=== PATIENT | female | born 1985 | race Caucasian/White ===

== ENCOUNTER 2021-04-30 23:14 | Emergency (ER) | payer OTHER ==
[~2021-04-30] VITALS: Ht 160 cm; Wt 54.0 kg
[2021-05-01 01:44] LABS: EOSINOPHILS % (AUTO) 1.7 % (1.0-6.0); HEMATOCRIT 42.5 % (36-46); HEMOGLOBIN 14.2 g/dL (12.0-16.0); LYMPHOCYTES % (AUTO) 35.6 % (22.0-44.0); MEAN CORPUSCULAR HEMOGLOBIN 29.5 pg (26.0-34.0); MEAN CORPUSCULAR HGB CONC 33.4 G/dL (31.0-37.0); MEAN CORPUSCULAR VOLUME 88 fL (80-100); MONOCYTES # (AUTO) 0.2 K/uL (0.1-1.0); MONOCYTES % (AUTO) 4.2 % (2.0-9.0); NEUTROPHILS # (AUTO) 3.3 K/uL (1.8-7.7); NEUTROPHILS % (AUTO) 57.5 % (40.0-70.0); PLATELET COUNT (AUTO) 164 K/uL (150-450)
[2021-05-01 02:03] LABS: ALBUMIN 2.2 g/dL (3.4-5.0); BILIRUBIN,TOTAL 0.2 mg/dL (0.1-1.0); CALCIUM, TOTAL 8.5 mg/dL (8.8-10.5); CREATININE 1.34 mg/dL (0.60-1.30); POTASSIUM 4.3 mmol/L (3.5-5.1); TOTAL PROTEIN, SERUM 6.2 g/dL (6.4-8.2)
[2021-05-01] MEDS ORDERED: INSULIN REGULAR, HUMAN 100 UNITS/ML IVP ONE (02:15)
[2021-05-01 05:11] LABS: GLUCOSE,POINT OF CARE 359 MG/DL (70-110)
[2021-05-01 05:40] VITALS: BP 141/99
== END 2021-05-01 06:07 | disposition home or self-care (01) ==
LOC: EMS 23:15
DX: F41.9 Anxiety disorder, unspecified (principal); E11.65 Type 2 diabetes mellitus with hyperglycemia; F15.90 Other stimulant use, unspecified, uncomplicated
CPT/HCPCS: 36415; 71045; 80053; 82962; 84484; 84702; 85025; 93005; 96374; 99285; J1815

== ENCOUNTER 2022-10-31 17:47 | Emergency (ER) | payer MEDICAID ==
[~2022-10-31] VITALS: Ht 154.9 cm; Wt 75.0 kg
[~2022-10-31 17:47] MED LIST: ACET-66 PO; AMLO5TAB66 PO; CETI10TA58 PO; INSU100I66 SQ; LISI20TA24 PO; MECL-134 PO; TRI115O TP
[2022-10-31 17:52] VITALS: TEMP 99.8
[2022-10-31] MEDS ORDERED: METOCLOPRAMIDE HCL 5 MG/ML 2 ML VIAL IVP ONE (18:45)
[2022-10-31] MEDS ORDERED: SODIUM CHLORIDE 0.9% 1,000 ML IV ONE (18:45)
[2022-10-31 19:10] LABS: BASOPHILS % (AUTO) 0.8 % (0.0-2.0); EOSINOPHILS % (AUTO) 0.6 % (1.0-6.0); HEMATOCRIT 37.8 % (36-46); HEMOGLOBIN 12.8 g/dL (12.0-16.0); LYMPHOCYTES # (AUTO) 2.7 K/uL (1.0-4.8); LYMPHOCYTES % (AUTO) 23.2 % (22.0-44.0); MEAN CORPUSCULAR HEMOGLOBIN 29.2 pg (26.0-34.0); MEAN CORPUSCULAR HGB CONC 33.8 G/dL (31.0-37.0); MEAN CORPUSCULAR VOLUME 86 fL (80-100); MONOCYTES # (AUTO) 0.6 K/uL (0.1-1.0); MONOCYTES % (AUTO) 5.4 % (2.0-9.0); NEUTROPHILS # (AUTO) 8.2 K/uL (1.8-7.7); PLATELET COUNT (AUTO) 229 K/uL (150-450); RED BLOOD CELL COUNT(AUTO) 4.38 MIL/uL (4.00-5.20); RED CELL DISTRIBUTION WIDTH 13.1 % (11.5-14.5)
[2022-10-31 19:20] LABS: CALCIUM, TOTAL 8.6 mg/dL (8.8-10.5); CREATININE 1.43 mg/dL (0.60-1.30); POTASSIUM 4.2 mmol/L (3.5-5.1)
[2022-10-31 19:33] LABS: ALBUMIN 2.1 g/dL (3.4-5.0); BILIRUBIN,TOTAL 0.2 mg/dL (0.1-1.0); TOTAL PROTEIN, SERUM 6.1 g/dL (6.4-8.2)
[2022-10-31 19:40] LABS: APPEARANCE,URINE CLEAR (CLEAR); BILIRUBIN,URINE NEGATIVE (NEGATIVE); GLUCOSE, URINE (UA) >=1000 mg/dL (NEGATIVE); KETONES,URINE NEGATIVE (NEGATIVE); LEUKOCYTE ESTERASE ,URINE NEGATIVE (NEGATIVE); NITRATE,URINE NEGATIVE (NEGATIVE); OCCULT BLOOD,URINE MODERATE (NEGATIVE); PROTEIN,URINE >600,SEE CONFIRM mg/dL (NEGATIVE); SPECIFIC GRAVITIY, URINE 1.027 (1.003-1.030); UROBILINOGEN,URINE <=1.0 mg/dL (<=1.0)
[2022-10-31 19:56] LABS: SQUAMOUS EPITHELIAL CELL,UR Few /LPF (None Seen); SULFOSALICYLIC ACID,URINE 4+ (Negative)
[2022-10-31 19:57] LABS: RBC,URINE 0-2 /HPF (0-2)
[2022-10-31 19:58] LABS: BACTERIA,URINE Rare /HPF (None Seen)
[2022-10-31] MEDS ORDERED: DiphenhydrAMINE HCL 25 MG CAPSULE PO ONE (20:45)
[2022-10-31] MEDS ORDERED: METO5TAB87 PO (21:40)
[2022-10-31 21:53] VITALS: BP 128/76; PULSE 88; RESP 20
== END 2022-10-31 21:54 | disposition home or self-care (01) ==
LOC: EMS 17:51
DX: R11.2 Nausea with vomiting, unspecified (principal); R10.13 Epigastric pain; I10 Essential (primary) hypertension; E11.9 Type 2 diabetes mellitus without complications; F17.210 Nicotine dependence, cigarettes, uncomplicated; Z79.899 Other long term (current) drug therapy
CPT/HCPCS: 99285; 74176; 96374; 96361; 80053; 81001; 82962; 83690; 84702; 85025; 36415; 74022; J2765; J7030; 81002

== ENCOUNTER 2024-01-19 23:54 | Emergency (ER) | payer MEDICAID ==
[~2024-01-19] VITALS: Ht 154.9 cm; Wt 97.1 kg
[~2024-01-19 23:54] MED LIST changes: -INSU100I66 SQ; +INSU100I93 SQ; +METO5TAB87 PO
[2024-01-20 00:58] LABS: BASOPHILS % (AUTO) 1.3 % (0.0-2.0); HEMATOCRIT 33.3 % (36-46); HEMOGLOBIN 11.1 g/dL (12.0-16.0); LYMPHOCYTES # (AUTO) 2.3 K/uL (1.0-4.8); LYMPHOCYTES % (AUTO) 31.1 % (22.0-44.0); MEAN CORPUSCULAR HEMOGLOBIN 28.6 pg (26.0-34.0); MEAN CORPUSCULAR HGB CONC 33.2 G/dL (31.0-37.0); MEAN CORPUSCULAR VOLUME 86 fL (80-100); MONOCYTES # (AUTO) 0.3 K/uL (0.1-1.0); MONOCYTES % (AUTO) 4.2 % (2.0-9.0); NEUTROPHILS # (AUTO) 4.5 K/uL (1.8-7.7); NEUTROPHILS % (AUTO) 61.4 % (40.0-70.0); PLATELET COUNT (AUTO) 184 K/uL (150-450); RED BLOOD CELL COUNT(AUTO) 3.87 MIL/uL (4.00-5.20); WHITE BLOOD COUNT (AUTO) 7.4 K/uL (4.5-11.0)
[2024-01-20 01:07] VITALS: TEMP 98.4
[2024-01-20 01:19] LABS: ACETONE,BLOOD NEGATIVE (NEGATIVE); TROPONIN I-HIGH SENSITIVITY 10 ng/L (<51)
[2024-01-20] MEDS: SODIUM CHLORIDE 0.9% 1,000 ML IV ONE (01:23)
[2024-01-20] MEDS ORDERED: ARIP2TAB27 PO (01:28)
[2024-01-20] MEDS ORDERED: METF-1211 PO (01:28)
[2024-01-20] MEDS ORDERED: ROSU10TA72 PO (01:28)
[2024-01-20] MEDS ORDERED: TRAZ-252 PO (01:28)
[2024-01-20] MEDS ORDERED: GABA-1181 PO (01:28)
[2024-01-20] MEDS ORDERED: BUPR-225 PO (01:28)
[2024-01-20 01:31] LABS: HCG,QUANTITATIVE < 1 mIU/mL (0-6)
[2024-01-20 01:42] LABS: APPEARANCE,URINE CLEAR (CLEAR); BILIRUBIN,URINE NEGATIVE (NEGATIVE); COLOR,URINE COLORLESS (YELLOW); GLUCOSE, URINE (UA) >=1000 mg/dL (NEGATIVE); KETONES,URINE NEGATIVE (NEGATIVE); LEUKOCYTE ESTERASE ,URINE NEGATIVE (NEGATIVE); NITRATE,URINE NEGATIVE (NEGATIVE); OCCULT BLOOD,URINE SMALL (NEGATIVE); PROTEIN,URINE >600,SEE CONFIRM mg/dL (NEGATIVE); SPECIFIC GRAVITIY, URINE 1.016 (1.003-1.030); UROBILINOGEN,URINE <=1.0 mg/dL (<=1.0)
[2024-01-20 01:46] LABS: BACTERIA,URINE Few /HPF (None Seen); RBC,URINE 0-2 /HPF (0-2); SQUAMOUS EPITHELIAL CELL,UR Few /LPF (None Seen); SULFOSALICYLIC ACID,URINE 4+ (Negative); WBC,URINE None Seen /HPF (0-5)
[2024-01-20 01:46] LABS: ALANINE AMINOTRANSFERASE 18 U/L (12-78); ALBUMIN 1.1 g/dL (3.4-5.0); ALKALINE PHOSPHATASE 142 U/L (46-116); ANION GAP 8 mmol/L (8-16); ASPARTATE AMINOTRANSFERASE 16 U/L (15-37); CALCIUM, TOTAL 7.7 mg/dL (8.8-10.5); CARBON DIOXIDE 22 mmol/L (22-29); CHLORIDE 99 mmol/L (98-107); CREATININE 1.71 mg/dL (0.60-1.30); GLOMERULAR FILTR. RATE CALC 34 mL/min (>60); LIPASE 89 U/L (16-77); SODIUM SERUM 128 mmol/L (136-145); TOTAL PROTEIN, SERUM 5.2 g/dL (6.4-8.2); UREA NITROGEN, BLOOD 14 mg/dL (7-18)
[2024-01-20 01:47] LABS: BILIRUBIN,DIRECT < 0.05 mg/dL (0.00-0.20); BILIRUBIN,TOTAL < 0.1 mg/dL (0.1-1.0)
[2024-01-20] MEDS: HydrALAZINE HCL 20 MG/ML VIAL IVP ONE (01:48)
[2024-01-20 01:49] LABS: GLUCOSE,RANDOM 513 mg/dL (70-110)
[2024-01-20] MEDS: INSULIN REGULAR, HUMAN 100 UNITS/ML IVP ONE (02:04)
[2024-01-20 03:36] LABS: GLUCOMETER DEV NAME(LOC) ERT.6; GLUCOSE,POINT OF CARE 216 MG/DL (70-110)
[2024-01-20 04:31] VITALS: BP 156/101; PULSE 108; RESP 18; O2SAT 98
== END 2024-01-20 04:50 | disposition home or self-care (01) ==
LOC: EMS 23:54
DX: E11.65 Type 2 diabetes mellitus with hyperglycemia (principal); R10.13 Epigastric pain; I10 Essential (primary) hypertension; F17.210 Nicotine dependence, cigarettes, uncomplicated; R07.89 Other chest pain; Z90.49 Acquired absence of other specified parts of digestive tract
CPT/HCPCS: 99285; 80048; 80076; 81001; 82009; 83690; 84484; 84702; 85025; 36415; 96374; 76705; 96361; 96375; 82962; 93005; J0360; J1815; J7030; 81002

== ENCOUNTER 2024-09-10 00:48 | Inpatient (IN) | payer MEDICAID ==
[~2024-09-10] VITALS: Ht 157.5 cm; Wt 63.6 kg
[~2024-09-10 00:48] MED LIST changes: -ACET-66 PO; -AMLO5TAB66 PO; +ARIP2TAB27 PO; +BUPR-225 PO; -CETI10TA58 PO; +GABA-1181 PO; -MECL-134 PO; +METF-1211 PO; -METO5TAB87 PO; +ROSU10TA72 PO; +TRAZ-252 PO
[2024-09-10 01:53] LABS: ANION GAP 11 mmol/L (8-16); CALCIUM, TOTAL 8.2 mg/dL (8.8-10.5); CARBON DIOXIDE 20 mmol/L (22-29); CHLORIDE 110 mmol/L (98-107); CREATININE 3.75 mg/dL (0.60-1.30); GLOMERULAR FILTR. RATE CALC 14 mL/min (>60); GLUCOSE,RANDOM 116 mg/dL (70-110); POTASSIUM 3.2 mmol/L (3.5-5.1); SODIUM SERUM 141 mmol/L (136-145); UREA NITROGEN, BLOOD 23 mg/dL (7-18)
[2024-09-10 01:57] LABS: BASOPHILS % (AUTO) 1.5 % (0.0-2.0); EOSINOPHILS % (AUTO) 1.5 % (1.0-6.0); HEMATOCRIT 34.1 % (36-46); HEMOGLOBIN 11.2 g/dL (12.0-16.0); LYMPHOCYTES # (AUTO) 3.1 K/uL (1.0-4.8); MEAN CORPUSCULAR HEMOGLOBIN 29.3 pg (26.0-34.0); MEAN CORPUSCULAR HGB CONC 32.7 G/dL (31.0-37.0); MEAN CORPUSCULAR VOLUME 89 fL (80-100); MONOCYTES # (AUTO) 0.5 K/uL (0.1-1.0); MONOCYTES % (AUTO) 4.2 % (2.0-9.0); NEUTROPHILS # (AUTO) 7.5 K/uL (1.8-7.7); NEUTROPHILS % (AUTO) 65.8 % (40.0-70.0); PLATELET COUNT (AUTO) 325 K/uL (150-450); RED BLOOD CELL COUNT(AUTO) 3.82 MIL/uL (4.00-5.20); WHITE BLOOD COUNT (AUTO) 11.5 K/uL (4.5-11.0)
[2024-09-10 02:04] LABS: TROPONIN I-HIGH SENSITIVITY 16 ng/L (<51)
[2024-09-10 02:06] LABS: ALANINE AMINOTRANSFERASE 19 U/L (12-78); ALBUMIN 1.4 g/dL (3.4-5.0); ALKALINE PHOSPHATASE 75 U/L (46-116); ASPARTATE AMINOTRANSFERASE 19 U/L (15-37); CREATINE KINASE, TOTAL ONLY 338 U/L (26-192); HCG,QUANTITATIVE 21 mIU/mL (0-6); LIPASE 54 U/L (16-77); TOTAL PROTEIN, SERUM 5.7 g/dL (6.4-8.2)
[2024-09-10] MEDS: ONDANSETRON HCL 4 MG/2 ML VIAL IVP ONE (02:08)
[2024-09-10] MEDS: ACETAMINOPHEN 325 MG TABLET PO ONE (02:08)
[2024-09-10] MEDS: FAMOTIDINE 20 MG/2 ML VIAL IVP ONE (02:08)
[2024-09-10] MEDS: SODIUM CHLORIDE 0.9% 1,000 ML IV ONE (02:08)
[2024-09-10 02:09] LABS: BILIRUBIN,TOTAL 0.1 mg/dL (0.1-1.0)
[2024-09-10] MEDS: MAG HYDROX/ALUMINUM HYD/SIMETH 30 ML SUSPENSION UDCUP PO ONE (02:09)
[2024-09-10 02:10] LABS: B-TYPE NATRIURETIC PEPTIDE 151 pg/mL (0-100); BILIRUBIN,DIRECT < 0.05 mg/dL (0.00-0.20)
[2024-09-10] MEDS: MORPHINE SULFATE 2 MG/ML SYRINGE IVP ONE (04:03)
[2024-09-10] MEDS ORDERED: ONDANSETRON HCL 4 MG/2 ML VIAL IVP PRN (06:15)
[2024-09-10] MEDS: DOCUSATE SODIUM 100 MG CAPSULE PO SCH (08:53)
[2024-09-10] MEDS: FAMOTIDINE 20 MG TABLET PO SCH (08:53)
[2024-09-10] MEDS ORDERED: DEXTROSE 50%-WATER 25 GM/50 ML SYRINGE IVP PRN (09:45)
[2024-09-10] MEDS: POTASSIUM CHL 10 MEQ/WATER 50 ML IV ONE (10:00)
[2024-09-10 12:15] LABS: APPEARANCE,URINE CLEAR (CLEAR); BILIRUBIN,URINE NEGATIVE (NEGATIVE); COLOR,URINE LIGHT YELLOW (YELLOW); GLUCOSE, URINE (UA) 300-500 mg/dL (NEGATIVE); KETONES,URINE NEGATIVE (NEGATIVE); LEUKOCYTE ESTERASE ,URINE NEGATIVE (NEGATIVE); NITRATE,URINE NEGATIVE (NEGATIVE); OCCULT BLOOD,URINE SMALL (NEGATIVE); PH,URINE 6.5 (5.0-8.0); PROTEIN,URINE >600,SEE CONFIRM mg/dL (NEGATIVE); SPECIFIC GRAVITIY, URINE 1.016 (1.003-1.030); UROBILINOGEN,URINE <=1.0 mg/dL (<=1.0)
[2024-09-10 12:24] LABS: BACTERIA,URINE None Seen /HPF (None Seen); RBC,URINE 0-2 /HPF (0-2); SQUAMOUS EPITHELIAL CELL,UR Few /LPF (None Seen); SULFOSALICYLIC ACID,URINE 3+ (Negative); WBC,URINE 0-2 /HPF (0-5)
[2024-09-10 12:50] LABS: GLUCOMETER DEV NAME(LOC) ERT.7; GLUCOSE,POINT OF CARE 137 MG/DL (70-110)
[2024-09-10 17:19] VITALS: BP 106/77; PULSE 68; RESP 19; O2SAT 99
[2024-09-10 17:40] LABS: GLUCOMETER DEV NAME(LOC) ERT.7; GLUCOSE,POINT OF CARE 104 MG/DL (70-110)
[2024-09-10 21:00] VITALS: BP 119/69; PULSE 93; RESP 20; TEMP 97.7; O2SAT 100
[2024-09-10] MEDS: INSULIN LISPRO 100 UNITS/ML SQ PRN (21:33)
[2024-09-11 04:11] VITALS: BP 131/84; PULSE 98; RESP 18; TEMP 98.2; O2SAT 100
[2024-09-11] MEDS: ACETAMINOPHEN 325 MG TABLET PO PRN (04:11)
[2024-09-11 04:55] LABS: GLUCOMETER DEV NAME(LOC) 6N.2B; GLUCOSE,POINT OF CARE 276 MG/DL (70-110)
[2024-09-11 07:49] VITALS: BP 124/80; PULSE 88; RESP 18; TEMP 98; O2SAT 100
[2024-09-11 07:50] LABS: CALCIUM, TOTAL 7.7 mg/dL (8.8-10.5); CREATININE 3.71 mg/dL (0.60-1.30); POTASSIUM 3.6 mmol/L (3.5-5.1)
[2024-09-11 15:09] LABS: BASOPHILS % (AUTO) 1.1 % (0.0-2.0); EOSINOPHILS % (AUTO) 2.8 % (1.0-6.0); HEMATOCRIT 33.5 % (36-46); HEMOGLOBIN 10.9 g/dL (12.0-16.0); LYMPHOCYTES # (AUTO) 1.9 K/uL (1.0-4.8); LYMPHOCYTES % (AUTO) 27.7 % (22.0-44.0); MEAN CORPUSCULAR HEMOGLOBIN 29.4 pg (26.0-34.0); MEAN CORPUSCULAR HGB CONC 32.6 G/dL (31.0-37.0); MEAN CORPUSCULAR VOLUME 90 fL (80-100); MONOCYTES # (AUTO) 0.3 K/uL (0.1-1.0); MONOCYTES % (AUTO) 4.3 % (2.0-9.0); NEUTROPHILS # (AUTO) 4.4 K/uL (1.8-7.7); NEUTROPHILS % (AUTO) 64.1 % (40.0-70.0); PLATELET COUNT (AUTO) 271 K/uL (150-450); RED BLOOD CELL COUNT(AUTO) 3.71 MIL/uL (4.00-5.20); RED CELL DISTRIBUTION WIDTH 15.3 % (11.5-14.5); WHITE BLOOD COUNT (AUTO) 6.8 K/uL (4.5-11.0)
[2024-09-11 15:34] VITALS: BP 140/91; PULSE 91; RESP 18; TEMP 98.1; O2SAT 100
[2024-09-11 16:51] LABS: GLUCOMETER DEV NAME(LOC) 6S.2; GLUCOSE,POINT OF CARE 128 MG/DL (70-110)
[2024-09-11 16:51] LABS: GLUCOMETER DEV NAME(LOC) 6S.2; GLUCOSE,POINT OF CARE 152 MG/DL (70-110)
[2024-09-11 18:35] LABS: GLUCOMETER DEV NAME(LOC) 6S.2; GLUCOSE,POINT OF CARE 126 MG/DL (70-110)
[2024-09-11 18:36] VITALS: BP 137/85; PULSE 91; RESP 18; TEMP 97.3; O2SAT 100
[2024-09-11 19:55] VITALS: BP 134/88; PULSE 91; RESP 18; TEMP 98.8; O2SAT 100
[2024-09-11 19:55] LABS: GLUCOMETER DEV NAME(LOC) 6N.2B; GLUCOSE,POINT OF CARE 143 MG/DL (70-110)
[2024-09-11] MEDS: MORPHINE SULFATE 2 MG/ML SYRINGE IVP PRN (20:47)
[2024-09-11 22:01] LABS: GLUCOMETER DEV NAME(LOC) 6S.1D; GLUCOSE,POINT OF CARE 152 MG/DL (70-110)
[2024-09-12 05:13] VITALS: BP 130/80; PULSE 87; RESP 18; TEMP 98.4; O2SAT 99
[2024-09-12 05:41] LABS: GLUCOMETER DEV NAME(LOC) 6S.1D; GLUCOSE,POINT OF CARE 129 MG/DL (70-110)
[2024-09-12 07:20] LABS: CREATININE 3.3 mg/dL (0.60-1.30); POTASSIUM 4.1 mmol/L (3.5-5.1)
[2024-09-12 08:29] VITALS: BP 146/87; PULSE 79; RESP 20; TEMP 98.1; O2SAT 99
== END 2024-09-12 11:40 | disposition home or self-care (01) | DRG 470 ==
LOC: EMS 00:54 → EDH 06:13 → ICUN 07:00 → 6N 21:35
PROVIDERS: ADMIT Internal Medicine; ATTEND Internal Medicine
DX: I12.9 Hypertensive chronic kidney disease with stage 1 through stage 4 chronic kidney disease, or unspecified chronic kidney disease (principal); D63.8 Anemia in other chronic diseases classified elsewhere; E11.21 Type 2 diabetes mellitus with diabetic nephropathy; N18.4 Chronic kidney disease, stage 4 (severe); E78.00 Pure hypercholesterolemia, unspecified; E78.1 Pure hyperglyceridemia; E87.6 Hypokalemia; E11.22 Type 2 diabetes mellitus with diabetic chronic kidney disease; Z79.4 Long term (current) use of insulin; Z86.73 Personal history of transient ischemic attack (TIA), and cerebral infarction without residual deficits; Z87.891 Personal history of nicotine dependence; Z97.5 Presence of (intrauterine) contraceptive device; Z99.2 Dependence on renal dialysis
CPT/HCPCS: 71045; 80048; 80076; 81001; 81002; 82550; 82962; 83690; 83880; 84484; 84702; 85025; 93005; 93306; 96361; 96374; 96375; 99285; J2270; J2405; J3480; J3490; J7030; 36415-L1; 36415-TC